=== PATIENT | female | born 1985 ===

== ENCOUNTER 2023-05-20 12:27 | Emergency (ER) | payer MEDICAID ==
[~2023-05-20] VITALS: Ht 167.6 cm; Wt 81.6 kg
[2023-05-20 12:53] VITALS: BP 111/58; PULSE 68; RESP 18; TEMP 98.6; O2SAT 100
[2023-05-20] MEDS ORDERED: IBUP-2029 MT (13:43)
[2023-05-20] MEDS ORDERED: OFLO5DRO4 LEFT EAR (13:43)
== END 2023-05-20 15:40 | disposition home or self-care (01) ==
LOC: ER 12:27
DX: H60.92 Unspecified otitis externa, left ear (principal); Z98.890 Other specified postprocedural states
CPT/HCPCS: 99283